=== PATIENT | male | born 1990 | race Caucasian/White ===

== ENCOUNTER 2019-09-19 15:29 | Emergency (ER) | payer BC, MEDICAID ==
[~2019-09-19] VITALS: Ht 182.9 cm; Wt 81.6 kg
[2019-09-19 15:55] VITALS: BP 126/77; Ht 182.9 cm; Wt 81.6 kg
== END 2019-09-19 17:01 | disposition home or self-care (01) ==
LOC: ED 15:29
DX: L03.011 Cellulitis of right finger (principal)
CPT/HCPCS: 90715; 99406; J3490